=== PATIENT | female | born 1945 | race Two or more races ===

== ENCOUNTER → 2024-03-14 11:08 | Outpatient (REF) | payer OTHER, SELFPAY | LOC: WDC 11:08 | PROVIDERS: ATTENDING PHYSICIAN Family Medicine | DX: M85.80 Other specified disorders of bone density and structure, unspecified site (principal); Z12.31 Encounter for screening mammogram for malignant neoplasm of breast; Z78.0 Asymptomatic menopausal state | CPT/HCPCS: 77063; 77067; 77080 ==

== ENCOUNTER → 2025-03-20 08:46 | Outpatient (REF) | payer OTHER, SELFPAY | LOC: WDC 08:46 | PROVIDERS: ATTENDING PHYSICIAN Family Medicine | DX: Z12.31 Encounter for screening mammogram for malignant neoplasm of breast (principal) | CPT/HCPCS: 77063; 77067 ==